=== PATIENT | female | born 1990 | race Two or more races ===

== ENCOUNTER 2019-02-22 13:27 | Emergency (ER) | payer SELFPAY ==
[~2019-02-22] VITALS: Ht 157.5 cm; Wt 65.3 kg
[2019-02-22 13:54] VITALS: BP 123/84
== END 2019-02-22 15:06 | disposition home or self-care (01) ==
LOC: ER 13:27
DX: D36.7 Benign neoplasm of other specified sites (principal); L71.9 Rosacea, unspecified
CPT/HCPCS: Z7502